=== PATIENT | female | born 2000 | race African-American/Black ===

== ENCOUNTER 2018-06-13 11:36 | Emergency (ER) | payer OTHER ==
[~2018-06-13] VITALS: Ht 144.8 cm; Wt 56.8 kg
[2018-06-13] MEDS ORDERED: IBUPROFEN 600 MG TABLET PO ONE (12:15)
[2018-06-13 12:50] VITALS: BP 119/69
== END 2018-06-13 12:51 | disposition home or self-care (01) ==
LOC: EMS 11:47
DX: J02.8 Acute pharyngitis due to other specified organisms (principal); H92.02 Otalgia, left ear

== ENCOUNTER 2020-05-17 19:14 | Emergency (ER) | payer OTHER ==
[~2020-05-17] VITALS: Ht 144.8 cm; Wt 65.9 kg
[2020-05-17 19:39] VITALS: BP 129/72
== END 2020-05-17 19:57 | disposition home or self-care (01) ==
LOC: EMS 19:14
DX: H65.01 Acute serous otitis media, right ear (principal)
CPT/HCPCS: 99283; Z7502